=== PATIENT | female | born 1990 | race Caucasian/White ===

== ENCOUNTER 2016-10-03 11:08 | Emergency (ER) | payer BC ==
[2016-10-03 11:53] VITALS: BP 143/88
--- NOTE | 2016-10-03 13:36 | ERNOTE ---
Abdominal HPI - Narrative Date of Service: 10/03/16 - General Chief Complaint: Constipation Time Seen by Provider: 10/03/16 13:23 Source: patient, RN notes reviewed Exam Limitations: no limitations - Immun/Allergies/Home Medications Allergies/Adverse Reactions: Allergies No Known Allergies Allergy (Verified 10/03/16 11:53) Home Medications: HOME MEDICATIONS Calcium Carbonate [Tums] 500 mg PO PRN 02/10/16 [Last Taken 02/09/16] Vit#96/Ferrous Fum/FA [ S] 1 tab PO DAILY 02/10/16 [Last Taken 02/09/16 2100] - History of Present Illness Narrative: Christina is a 26 year old female who presents to the ED by private vehicle for constipation that began over 2 weeks ago. She reports only passing small amounts of liquid stool for the past 2 weeks. She has taken 2 doses of magnesium citrate in the past week with no results. She was seen in the walk in clinic yesterday. An enema was recommended. She did a tap water enema last evening with just brown water return. She has been having mild lower abdominal pain but no vomiting. Prior Abdominal Problems: Present: similar symptoms - several years ago due to an infection of unknown type Review of Systems - Review of Systems Constitutional: Absent: recent illness, fever, chills, malaise EYE: Present: no symptoms reported ENT: Present: no symptoms reported Respiratory: Present: no symptoms reported Cardiology: Present: no symptoms reported Gastrointestinal/Abdominal: Present: nausea, diarrhea, constipation, abdominal pain, eating less. Absent: vomiting, drinking less Genitourinary: Absent: dysuria, other - possible , is Musculoskeletal: Absent: back pain, muscle pain Skin: Absent: lesions, lumps Neurological: Absent: headache, dizziness/light-headedness Endocrine: Present: no symptoms reported Hematologic/Lymphatic: Present: no symptoms reported Psych: Present: no symptoms reported - Patient's Past Medical History Patient History - Medical: No pertinent hx Patient History - Cardiac/Respiratory: No pertinent hx Patient History - Cancer: No Hx of Cancer Patient History - Surgical Procedures: No surgical history - Social History Living Situations: home Smoking Status: Never smoker Alcohol Use: none Drug Use: none Physical Exam - Physical Exam General Appearance: Present: wd/wn, alert, no apparent distress Neck: Present: normal inspection, nontender, supple Respiratory: Present: no respiratory distress, normal breath sounds, no accessory muscle use, lungs clear Cardiovascular/Chest: Present: regular rate, rhythm, no murmur Gastrointestinal/Abdominal: Present: normal bowel sounds, nondistended, soft, tenderness - left and mid lower abdomen Back Exam: Present: normal inspection, no CVA tenderness Neurological Exam: Present: alert, oriented, normal mood/affect Skin Exam: Present: normal color, warm/dry ED Progress - Results and Orders Patient's Lab Results:: I have reviewed the patient's lab results. - Vital Signs Patient's Vital Signs:: I have reviewed the patient's vital signs. Vital Signs: Vital Signs 10/03/16 11:51 Temperature 37.2 C Pulse Rate 97 Respiratory 14 Rate Blood Pressure 143/88 O2 Sat by Pulse 100 Oximetry - X-Ray X-Ray #1 X-Ray: abdomen Interpretation: Interp. by me X-ray Comments: No significant stool retention present, air fluid levels in large bowel, no obstruction - Progress/Reassessment Chief Complaint: Constipation Progress:: Unchanged Departure - Departure Clinical Impression: Change in bowel habits Disposition: Home self-care Condition: Good Instructions: Constipation, Adult, [id number] Additional Instructions: Start Metamucil daily Avoid any further laxatives for now Return if symptoms worsen Referrals: Jerson Guevara MD [Primary Care Provider] -
[2016-10-03 13:51] LABS: Hematocrit 36.4 % (37.0-47.0); Hemoglobin 12.4 gm/dL (12.5-16.0); Mean Cell Volume 81.6 fl (78-100); Mean Corpuscular Hemoglobin 27.8 pg (27-31); Mean Corpuscular Hgb Conc 34.1 g/dl (32-36); Mean Platelet Volume 9.3 fl (6.0-9.5); Neutrophil # 2.6 K/mm3 (1.3-6.0); Neutrophil % 59.7 % (42-75.0); Platelet Count 442 K/mm3 (150-450); Red Blood Count 4.46 M/mm3 (4.2-5.4); White Blood Count 4.3 K/mm3 (4.0-10.5)
[2016-10-03 14:02] LABS: Albumin * 3.8 gm/dl (3.4-5.0); Anion Gap 12.8 mmol/L (6.8-13.8); BUN/Creatinine Ratio 13.1 (9.0-21.6); Bilirubin, Total 0.3 mg/dL (0.0-1.1); Ca. Corrected For Albumin 8.5 mg/dL (8.4-10.2); Calcium * 8.7 mg/dL (7.9-10.9); Carbon Dioxide 24.9 mmol/L (24-32.6); Potassium 3.7 mmol/L (3.4-4.6); Total Protein 7.7 gm/dL (6.2-8.2)
== END 2016-10-03 15:17 | disposition home or self-care (01) ==
LOC: ER 11:08
DX: R19.4 Change in bowel habit (principal)